=== PATIENT | male | born 1950 | race Two or more races ===

== ENCOUNTER 2018-02-27 10:25 | Day surgery (SDC) | payer OTHER ==
[~2018-02-27] VITALS: Ht 170.2 cm; Wt 77.1 kg
[2018-02-27] MEDS ORDERED: LIDOCAINE 2%HCL (LOCAL ANESTH.) INJ 10ml MDV ONE (11:22)
[2018-02-27] MEDS ORDERED: IOHEXOL 350 MG/ML 100ML IJ ONE (11:22)
[2018-02-27] MEDS ORDERED: MIDAZOLAM HCL 1MG/1ML-2 ML VIAL ONE (11:23)
[2018-02-27] MEDS ORDERED: fentaNYL CITRATE 100 MCG/2 ML VL ONE (11:23)
== END 2018-02-27 14:25 | disposition home or self-care (01) ==
LOC: CATH 10:25
PROVIDERS: ATTEND Internal Medicine Cardiovascular Disease
DX: I35.0 Nonrheumatic aortic (valve) stenosis (principal)
CPT/HCPCS: 93005; 93454; A6257; C1760; C1894; J1644; J2001; J2250; J3010; J7030; Q9967; 99152